=== PATIENT | female | born 1985 | race Caucasian/White ===

== ENCOUNTER 2017-09-11 22:19 | Emergency (ER) | payer MEDICAID ==
[~2017-09-11] VITALS: Ht 157.5 cm; Wt 65.0 kg
[~2017-09-11 22:19] MED LIST: HYDR-3533 PO; NAPR500T2 PO; SILV1CRE20 TOPICAL
[2017-09-11 23:13] VITALS: BP 110/66; PULSE 102; RESP 16; TEMP 99.6; O2SAT 99
[2017-09-12 00:20] LABS: BACTERIA, URINE RARE /hpf; BILIRUBIN, URINE NEG (NEG); BLOOD, URINE TRACE (NEG); GLUCOSE,URINE NEG (NEG); KETONE, URINE NEG (NEG); MUCUS URINE FEW /lpf (OCC); NITRITE,URINE NEG (NEG); PH, URINE 6.5 (5.0-8.5); SQUAMOUS EPITHELIAL CELL URINE 8 /hpf (0-5); URINE COLOR YELLOW (YELLW/STRAW); URINE LEUKOCYTE ESTERASE TRACE (NEG)
[2017-09-12] MEDS ORDERED: SODIUM CHLOR 0.9% 1000 ML INJ 1,000 ML IV ONE (00:45)
[2017-09-12] MEDS ORDERED: cefTRIAXone INJ 1,000 MG in SODIUM CHLORIDE 0.9% INJ 100 ML IV ONE (00:45)
[2017-09-12] MEDS ORDERED: KETOROLAC TROMETHAMINE 30 MG/ML (IVP) VIAL IV PUSH ONE (00:45)
[2017-09-12] MEDS ORDERED: ZOFR4TAB3 SL (00:50)
[2017-09-12] MEDS ORDERED: AUGM875T3 PO (00:50)
--- NOTE | 2017-09-12 00:51 | PD ---
HPI Chief Complaint: GI Complaint Time Seen by Provider: 23:46 Travel History International Travel<30 days: No Contact w/Intl Traveler<30days: No Traveled to known affect area: No History of Present Illness HPI 32-year-old female patient with 3 days of sinus pressure drainage headache fever and generalized fatigue. Due to persistent symptoms presents to the emergency department for evaluation. Patient is taking no medications. Patient denies . Patient's had no sore throat cough congestion shortness of breath chest pain abdominal pain dysuria frequency urgency. Patient has had myalgias arthralgias and fever. Patient states she is also had nausea and vomiting. Patient denies diarrhea. Patient had no dietary indiscretion well water ingestion or foreign travel. Other persons with similar symptoms. PFSH Past Medical History Narrative Medical Asthma ovarian cyst ectopic ; tobacco use; nursing notes reviewed Asthma: Yes Diminished Hearing: No Immunizations Current: Yes Tetanus Vaccination: < 5 Years Influenza Vaccination: Yes ?: Unknown LMP: 09/05/17 : 4 Para: 1 Miscarriage: 2 : 0 Ectopic : Yes (L FALLOPIAN TUBE REMOVED) Ovarian Cysts: Yes Tubal Ligation: No Past Surgical History Gynecologic Surgery: Yes Social History Alcohol Use: Yes (WEEKLY) Tobacco Use: No Substance Use: No (DENIES BUT HX OF COCAINE USE) Allergies-Medications (Allergen,Severity, Reaction): Uncoded Allergies: denies allergy to benadryl (Adverse Reaction, Unknown, none denies allergy , 09/10/15) Reported Meds & Prescriptions Reported Meds & Active Scripts Active Naproxen 500 Mg Tab 500 Mg PO BID PRN 7 Days Lortab (Hydrocodone-Acetaminophen) 5-325 Mg Tab 1 Tab PO Q6H PRN Silvadene Topical (Silver Sulfadiazine) 1 % Cream 1 Applic TOPICAL BID 7 Days Review of Systems Except as stated in HPI: all other systems reviewed are Neg General / Constitutional: Positive: Fever HENT: Positive: Headaches, Congestion, Other Cardiovascular: No: Chest Pain or Discomfort (Facial pain) Respiratory: No: Shortness of Breath Gastrointestinal: Positive: Nausea, Vomiting, No: Diarrhea, Abdominal Pain Genitourinary: No: Dysuria, Flank Pain Musculoskeletal: Positive: Myalgias, Arthralgias Skin: No Rash Psychiatric: No: Anxiety Hematologic/Lymphatic: No: Lymph Node Enlargement Physical Exam Narrative GENERAL: Well-developed well-nourished female no acute distress or respiratory distress SKIN: Warm and dry. HEAD: Normocephalic. EYES: No scleral icterus. No injection or drainage. ENT: Mucous membranes moist airway is patent tympanic membranes no redness dullness or loss of landmarks sinuses frontal and maxillary sensitive to percussion NECK: Supple, trachea midline. No JVD or lymphadenopathy. CARDIOVASCULAR: Regular rate and rhythm without murmurs, gallops, or rubs. RESPIRATORY: Breath sounds equal bilaterally. No accessory muscle use. GASTROINTESTINAL: Abdomen soft, non-tender, nondistended. MUSCULOSKELETAL: No cyanosis, or edema. BACK: Nontender without obvious deformity. No CVA tenderness. Data Data Last Documented VS Vital Signs Date Time Temp Pulse Resp B/P (MAP) Pulse Ox O2 Delivery O2 Flow Rate FiO2 09/11/17 23:13 99.6 102 16 110/66 (81) 99 Orders Orders Urinalysis - C+S If Indicated (09/11/17 23:46) Ed Urine Pregnancytest Poc (09/11/17 23:46) ^ Saline Lock (09/12/17 00:44) Influenzae A/B Antigen (09/12/17 00:44) Ceftriaxone Inj (Rocephin Inj) (09/12/17 00:45) Ns (Bolus) Inj (09/12/17 00:45) Ketorolac Inj (Toradol Inj) (09/12/17 00:45) Labs Laboratory Tests Test 09/12/17 00:00 Urine Color YELLOW Urine Turbidity HAZY Urine pH 6.5 Urine Specific [place] 1.017 Urine Protein NEG mg/dL Urine Glucose (UA) NEG mg/dL Urine Ketones NEG mg/dL Urine Occult Blood TRACE Urine Nitrite NEG Urine Bilirubin NEG Urine Urobilinogen LESS THAN 2.0 MG/DL Urine Leukocyte Esterase TRACE Urine RBC 2 /hpf Urine WBC 4 /hpf Urine Squamous Epithelial Cells 8 /hpf Urine Bacteria RARE /hpf Urine Mucus FEW /lpf Microscopic Urinalysis Comment CULT NOT INDICATED MDM Medical Decision Making Medical Screen Exam Complete: Yes Emergency Medical Condition: Yes Medical Record Reviewed: Yes Differential Diagnosis Viral syndrome, influenza, sinusitis, bronchitis, pneumonia, UTI, Narrative Course Specimens collected and sent for resulting urinalysis is essentially normal and [id number] hCG is negative Patient administered Rocephin 1 g IV piggyback 1 L normal saline and Toradol 30 mg IV after IV access obtained Patient is stable for outpatient management Diagnosis Primary Impression: Acute sinusitis Referrals: Primary Care Physician call for appointment Patient Instructions: General Instructions Departure Forms: Tests/Procedures, Work Release Special Instructions: no work x 2 days Additional Instructions: Increase fluid hydration Complete course of antibiotic as prescribed Take Zofran as prescribed as needed for nausea and/or vomiting No work 2 days Take acetaminophen/Tylenol every 4 hours as needed for fever 100.4F or greater Take ibuprofen/Advil/Motrin 600 mg as often as every 6 hours for fever 100.4F or greater pain Associates inflammation Return to the emergency department for any concerns or change in condition Follow-up with your primary care provider Med/Other Pt SpecificInfo: Prescription(s) given Scripts Ondansetron Odt (Zofran Odt) 4 Mg Tab 4 MG SL Q6HR Y for Nausea/Vomiting, #10 TAB 0 Refills Prov: Marilyn Stone MD 09/12/17 Amoxicillin-Clavulanate (Augmentin) 875-125 Mg Tab 1 TAB PO BID for Infection for 10 Days, #20 TAB 0 Refills Prov: Marilyn Stone MD 09/12/17 Disposition: 01 DISCHARGE HOME Condition: Stable Marilyn Stone MD Sep 12, 2017 00:51
== END 2017-09-12 01:33 | disposition home or self-care (01) ==
LOC: NEPC 22:19
DX: J01.90 Acute sinusitis, unspecified (principal)
CPT/HCPCS: 81001; 84703; 87804; 96374; 96375; 99284; J0696; J1885; J7030